=== PATIENT | female | born 1980 | race African-American/Black ===

== ENCOUNTER 2023-09-06 04:24 | Emergency (ER) | payer MEDICAID, OTHER ==
[~2023-09-06] VITALS: Ht 167.6 cm; Wt 90.9 kg
[2023-09-06 07:16] VITALS: BP 155/96; PULSE 105; RESP 18; TEMP 98; O2SAT 100
[2023-09-06 08:12] LABS: Basophils # (auto) 0 10 ^3/uL (0-0.2); Basophils % (auto) 0.3 % (0.0-2.0); Eosinophils # (auto) 0.2 10 ^3/uL (0-0.8); Lymphocytes # (auto) 2.1 10 ^3/uL (0.4-5.4); Monocytes # (auto) 0.3 10 ^3/uL (0-1.3); Nucleated Red Blood Cells % 0.1 %; White Blood Cell 4.6 10^3/uL (4.4-10.8)
[2023-09-06 08:14] LABS: Eosinophils % (auto) 3.7 % (0.0-7.0); Hematocrit 30.2 % (36.0-46.0); Lymphocytes % (auto) 45.3 % (10.0-50.0); Mean Corpuscular Hemoglobin 39.6 pg (28.0-32.0); Mean Corpuscular Volume 120.1 fL (80.0-100.0); Neutrophils # (auto) 2.1 10 ^3/uL (1.6-8.6); Neutrophils % (auto) 44.7 % (37.0-80.0); Red Blood Cells 2.52 10^6/uL (4.0-5.20); Red Cell Distribution Width 13.5 % (11.8-14.3)
[2023-09-06 08:18] LABS: Macrocytosis Moderate
[2023-09-06] MEDS: KETOROLAC TROMETH 30 MG/ML 1ML VIAL IM ONE (08:19)
[2023-09-06 08:21] LABS: Chloride 108 mmol/L (98-107); Potassium 3.7 mmol/L (3.5-5.1); Sodium 139 mmol/L (136-145)
[2023-09-06 08:22] LABS: Anion Gap 2 (5-15); Carbon Dioxide 29 mmol/L (20-30)
[2023-09-06 08:25] LABS: Platelet Estimate Adequate
[2023-09-06 08:27] LABS: BUN/Creatinine Ratio 11.8 (10.0-20.0); Blood Urea Nitrogen 8 mg/dL (9-23); Glucose 88 mg/dL (74-106)
[2023-09-06 08:29] LABS: Creatine Kinase IFCC 104 U/L (34-145)
[2023-09-06] MEDS ORDERED: IBUP1TAB5 PO (08:59)
[2023-09-06] MEDS ORDERED: [UNRECOGNIZED DRUG - CODE] PO (08:59)
== END 2023-09-06 09:09 | disposition home or self-care (01) ==
LOC: ER 04:24 → EEVIPCON 04:24 → ER 09:09
DX: D64.9 Anemia, unspecified (principal); M79.605 Pain in left leg; Z79.899 Other long term (current) drug therapy
CPT/HCPCS: 36415; 80048; 82550; 85025; 96372; 99283; J1885